=== PATIENT | male | born 1975 | race Caucasian/White ===

== ENCOUNTER 2016-09-22 14:36 | Emergency (ER) | payer MEDICARE, OTHER ==
[~2016-09-22] VITALS: Ht 188 cm; Wt 136.1 kg
== END 2016-09-22 16:21 | disposition home or self-care (01) ==
LOC: CFTX 14:36 → CED 14:36 → CFTX 16:09
DX: T63.441A Toxic effect of venom of bees, accidental (unintentional), initial encounter (principal); R03.0 Elevated blood-pressure reading, without diagnosis of hypertension; Z88.0 Allergy status to penicillin
CPT/HCPCS: 96372; 99282; J1100